=== PATIENT | female | born 1960 ===

== ENCOUNTER 2022-04-17 06:03 | Day surgery (SDC) | payer OTHER ==
[~2022-04-17 06:03] MED LIST: ATORVASTATIN CA40 MG PO; ENALAPRIL MALE2.5 MG PO
== END 2022-04-18 00:30 | disposition home or self-care (01) ==
LOC: CIR.AMB 06:03 → EDBD 07:30 → CIR.AMB 07:30
PROVIDERS: ATTEND Student in an Organized Health Care Education/Training Program
DX: N84.0 Polyp of corpus uteri (principal); Z20.822 Contact with and (suspected) exposure to COVID-19; I10 Essential (primary) hypertension; E78.5 Hyperlipidemia, unspecified; I87.2 Venous insufficiency (chronic) (peripheral)